=== PATIENT | female | born 1960 | race Caucasian/White ===

== ENCOUNTER 2017-02-10 23:01 | Emergency (ER) | payer SELFPAY ==
[~2017-02-10] VITALS: Wt 75.0 kg
[~2017-02-10 23:01] MED LIST: CEPH500C PO; IBUP-1542 PO; OXYC-281 PO
[2017-02-11] MEDS ORDERED: predniSONE 20 MG TAB PO ONE
[2017-02-11] MEDS ORDERED: HYDROCODONE/APAP (5/325) TAB PO ONE
[2017-02-11] MEDS ORDERED: ORPH100T PO (01:16)
[2017-02-11] MEDS ORDERED: HYDR-906 PO (01:16)
[2017-02-11] MEDS ORDERED: NAPR-260 PO (01:16)
[2017-02-11] MEDS ORDERED: MED4DP PO (01:18)
--- NOTE | 2017-02-11 01:22 | ERD ---
ER Documentation Chief Complaint Date/Time DATE: 02/11/17 TIME: 01:20 Chief Complaint severe back pain hx of sciatica HPI This is a 56-year-old female presents to the ER with lower back pain that radiates down into her left leg. This pain started last Wednesday. Pain is described as shocklike. Patient does admit to numbness and tingling of her left leg. Patient has had episodes of sciatica in the past and states this is similar. She denies any recent falls. She denies any urinary bowel incontinence patient denies any urinary frequency or dysuria. She denies any fevers or chills. She denies any IV drug use ROS 12 point review of systems was done, all negative except per HPI. Medications Home Meds Active Scripts Methylprednisolone* (Medrol* DOSE PACK) 4 Mg/Dose-Pack Tab.ds.pk, 4 MG PO . DIRECTED for 6 Days, PACKET Prov:KELBY LAMB 02/11/17 Orphenadrine Citrate (Norflex) 100 Mg Tablet.sa, 100 MG PO BID for 3 Days, TAB.SA Prov:KELBY LAMB 02/11/17 Naproxen* (Naprosyn*) 500 Mg Tablet, 500 MG PO BID Y for PAIN AND/OR INFLAMMATION, #30 TAB Prov:KELBY LAMB 02/11/17 Hydrocodone/Acetaminophen ([place] 5-325 Tablet) 1 Each Tablet, 1 TAB PO Q6H Y for PAIN, #15 TAB Prov:KELBY LAMB 02/11/17 Oxycodone Hcl-Acetaminophen* (Percocet*) 5-325 Mg Tablet, 1 TAB PO TID Y for PAIN LEVEL 6-10, #12 TAB Prov:ERIC CASTLE MD 02/27/16 Ibuprofen* (Ibuprofen*) 600 Mg Tablet, 600 MG PO TID for PAIN, #30 TAB Prov:ERIC CASTLE MD 02/27/16 Cephalexin* (Cephalexin*) 500 Mg Capsule, 500 MG PO TID, #21 CAP Prov:ERIC CASTLE MD 02/27/16 Allergies Allergies: Coded Allergies: No Known Allergy (Unverified , 02/27/16) PMhx/Soc History of Surgery: No Anesthesia Reaction: No Hx Neurological Disorder: No Hx Respiratory Disorders: No Hx Cardiac Disorders: No Hx Psychiatric Problems: No Hx Miscellaneous Medical Probl: Yes (jeremias ) Hx Alcohol Use: No Hx Substance Use: No Hx Tobacco Use: No Physical Exam Vitals Vital Signs Date Time Temp Pulse Resp B/P Pulse Ox O2 Delivery O2 Flow Rate FiO2 02/10/17 23:06 99.1 86 20 199/91 98 Physical Exam GENERAL: The patient is well developed and appropriate for usual state of health , in no apparent distress. NECK: C-spine is soft and supple. There is no cervical lymphadenopathy. CHEST: Clear to auscultation bilaterally. There are no rales, wheezes or rhonchi. HEART: Regular rate and rhythm. No murmurs, clicks, rubs or gallops. ABDOMEN: Soft, nontender and nondistended. Good bowel sounds. No rebound or guarding. No gross peritonitis. No gross organomegaly or masses. No Astudillo sign or McBurney point tenderness. No pulsatile abdominal mass. BACK: No midline or flank tenderness.. Tense paraspinal muscles. Negative leg raise test. No step- offs. EXTREMITIES: Equal pulses bilaterally. There is no peripheral clubbing, cyanosis or edema. No focal swelling or erythema. Full range of motion. Grossly neurovascularly intact. NEURO: Alert and oriented. Cranial nerves II through XII are intact. Motor strength in all 4 extremities with 5/5 strength. Sensation grossly intact. Normal speech and gait. SKIN: There is no apparent rash or petechia. The skin is warm and dry. Results 24 hrs Current Medications Medications (Trade) Dose Ordered Sig/Shanti Route PRN Reason Start Time Stop Time Status Last Admin Dose Admin Acetaminophen/ Hydrocodone Bitart ([place] (5/325)) 1 tab ONCE ONCE PO 02/11/17 00:00 02/11/17 00:07 DC 02/11/17 00:22 Prednisone (Prednisone) 60 mg ONCE ONCE PO 02/11/17 00:00 02/11/17 00:07 DC 02/11/17 00:22 Procedures/MDM Differential Diagnosis includes but is not limited to back strain, vertebral fracture, epidural abscess, cauda equina, herniated disc, AAA rupture, kidney stones, UTI, pyelonephritis. This is a 56-year-old female that presents to the ER with recurrent sciatica pain. This is likely sciatica pain. Patient is neurovascularly intact and is afebrile. Patient will be sent home with [place], Naproxen, Norflex, a steroid pack. Patient is to follow-up with her primary care doctor within 1-2 days or return to ER sooner if symptoms worsen. My medical decision making was shared with the patient understands and agrees with plan Departure Diagnosis: Primary Impression: Sciatica Condition: Stable Patient Instructions: Back Pain W/ Sciatica Additional Instructions: Llame al doctor MAANA y paulina rafat BRENDA PARA DENTRO DE 1-2 PERALTA.Dgale a la secretaria que nosotros le instruimos hacer esta brenda.Avise o llame si rollins condicin se empeora antes de la brenda. Regresa aqui si peor o no mejor. KELBY LAMB Feb 11, 2017 01:22
[2017-02-11 01:35] VITALS: BP 117/65; PULSE 69; TEMP 97.4
== END 2017-02-11 01:43 | disposition home or self-care (01) ==
LOC: FTE 23:01
DX: M54.42 Lumbago with sciatica, left side (principal)
CPT/HCPCS: 99284; J7512

== ENCOUNTER 2017-07-11 12:33 | Emergency (ER) | END 2017-07-11 16:22 | disposition home or self-care (01) | DX: N10 Acute pyelonephritis (principal); R40.2252 Coma scale, best verbal response, oriented, at arrival to emergency department; D72.829 Elevated white blood cell count, unspecified; R40.2142 Coma scale, eyes open, spontaneous, at arrival to emergency department; R40.2362 Coma scale, best motor response, obeys commands, at arrival to emergency department | CPT/HCPCS: 36415; 80053; 81001; 83605; 85025; 87040; 87086; 96374; 96375; J0696; J1885; J2270; J2405; J7030; Z7502 ==

== ENCOUNTER 2017-08-07 18:34 | Inpatient (IN) | payer MEDICAID, OTHER ==
[~2017-08-07] VITALS: Ht 157.5 cm; Wt 80.0 kg
[~2017-08-07 18:34] MED LIST changes: +CEPH-443 PO; +HYDR-906 PO; +IBUP800T25 PO; +MED4DP PO; +NAPR-260 PO; +ONDA4TAB14 PO; +ORPH100T PO
[2017-08-07] MEDS ORDERED: SODIUM CHLORIDE 0.9% 1L BAG IV* STA (19:30)
[2017-08-07] MEDS ORDERED: ACETAMINOPHEN 500 MG TAB PO STA (19:30)
[2017-08-07] MEDS ORDERED: morphine 4 MG/ML VIAL IV STA (19:40)
[2017-08-07] MEDS ORDERED: ONDANSETRON 4 MG INJ IV STA (19:40)
--- NOTE | 2017-08-07 19:54 | ERA ---
ER Documentation Chief Complaint Date/Time DATE: 08/07/17 TIME: 19:51 Chief Complaint Flank pain bilateral, pelvic pain fever x3 days HPI This is a 57-year-old female who presents to the emergency room with multiple complaints. She describes 3 days of symptoms. She describes abdominal pain that she states is pelvic but points to the suprapubic region associated with dysuria urgency and frequency. She describes right flank pain that is moderate and constant without movement. She also is noted to have a fever. She describes generalized malaise. Her abdominal pain is 5 out of 10 currently. No vaginal bleeding or discharge. ROS All systems reviewed and are negative except as per history of present illness. Medications Home Meds Active Scripts Docusate Sodium* (Colace*) 100 Mg Capsule, 100 MG PO TID Y for CONSTIPATION, # 30 CAP Prov:PERLA SALGADO MD 08/07/17 Cephalexin* (Keflex*) 500 Mg Capsule, 500 MG PO BID for 14 Days, CAP Prov:PERLA SALGADO MD 08/07/17 Ibuprofen* (Motrin*) 800 Mg Tab, 800 MG PO Q6H Y for PAIN AND OR ELEVATED TEMP, #30 TAB Prov:PERLA SALGADO MD 08/07/17 Ondansetron (Ondansetron Odt) 4 Mg Tab.rapdis, 4 MG PO Q6H Y for NAUSEA AND/OR VOMITING, #10 TAB Prov:PERLA SALGADO MD 07/11/17 Hydrocodone/Acetaminophen ([place] 5-325 Tablet) 1 Each Tablet, 1 TAB PO Q6H Y for PAIN, #7 TAB Prov:PERLA SALGADO MD 07/11/17 Ibuprofen* (Motrin*) 800 Mg Tab, 800 MG PO Q6H Y for PAIN AND OR ELEVATED TEMP, #30 TAB Prov:PERLA SALGADO MD 07/11/17 Cephalexin* (Keflex*) 500 Mg Capsule, 500 MG PO BID for 14 Days, CAP Prov:PERLA SALGADO MD 07/11/17 Methylprednisolone* (Medrol* DOSE PACK) 4 Mg/Dose-Pack Tab.ds.pk, 4 MG PO . DIRECTED for 6 Days, PACKET Prov:KELBY LAMB 02/11/17 Orphenadrine Citrate (Norflex) 100 Mg Tablet.sa, 100 MG PO BID for 3 Days, TAB.SA Prov:ZAINABKELBY PEREZ Williams 02/11/17 Naproxen* (Naprosyn*) 500 Mg Tablet, 500 MG PO BID Y for PAIN AND/OR INFLAMMATION, #30 TAB Prov:FRIDA LAMBSHIVAM Kramer 02/11/17 Hydrocodone/Acetaminophen ([place] 5-325 Tablet) 1 Each Tablet, 1 TAB PO Q6H Y for PAIN, #15 TAB Prov:ZAINAB,KELBY Kramer 02/11/17 Oxycodone Hcl-Acetaminophen* (Percocet*) 5-325 Mg Tablet, 1 TAB PO TID Y for PAIN LEVEL 6-10, #12 TAB Prov:ERIC CASTLE MD 02/27/16 Ibuprofen* (Ibuprofen*) 600 Mg Tablet, 600 MG PO TID for PAIN, #30 TAB Prov:ERIC CASTLE MD 02/27/16 Cephalexin* (Cephalexin*) 500 Mg Capsule, 500 MG PO TID, #21 CAP Prov:ERIC CASTLE MD 02/27/16 Allergies Allergies: Coded Allergies: No Known Allergy (Unverified , 02/27/16) PMhx/Soc History of Surgery: No Anesthesia Reaction: No Hx Neurological Disorder: No Hx Respiratory Disorders: No Hx Cardiac Disorders: No Hx Psychiatric Problems: No Hx Miscellaneous Medical Probl: Yes Hx Alcohol Use: No Hx Substance Use: No Hx Tobacco Use: No FmHx Family History: No diabetes Physical Exam Vitals Vital Signs Date Time Temp Pulse Resp B/P Pulse Ox O2 Delivery O2 Flow Rate FiO2 08/07/17 21:06 102.9 81 18 121/71 Room Air 08/07/17 20:14 Nasal Cannula 08/07/17 18:49 103.5 108 24 121/59 97 Physical Exam General: Well developed, well nourished, no acute distress Head: Normocephalic, atraumatic Eyes: Pupils equally reactive, EOM intact ENT: Moist mucous membranes Neck: Supple, no lymphadenopathy Respiratory: Lungs clear bilaterally, no distress Cardiovascular: RRR, no murmurs, rubs, or gallops Abdominal: Soft, mild generalized abdominal tenderness worse to the suprapubic region without rebound or guarding, no tenderness to McBurney's point Back: Mild CVA tenderness on the right : Deferred MSK: No edema, no unilateral swelling, 5/5 strength Neurologic: Alert and oriented, moving all extremities, normal speech, no focal weakness, no cerebellar signs Skin: No rash Psych: Normal mood Result Diagram: 08/07/17194408/07/171944 Results 24 hrs Laboratory Tests Test 08/07/17 19:45 08/07/17 21:36 White Blood Count 21.610^3/ul Red Blood Count 5.3310^6/ul Hemoglobin 13.3g/dl Hematocrit 42.3% Mean Corpuscular Volume 79.4fl Mean Corpuscular Hemoglobin 25.0pg Mean Corpuscular Hemoglobin Concent 31.4g/dl Red Cell Distribution Width 15.9% Platelet Count 55106^3/UL Mean Platelet Volume 9.0fl Neutrophils % 75.5% Lymphocytes % 13.3% Monocytes % 10.2% Eosinophils % 0.0% Basophils % 0.3% Nucleated Red Blood Cells % 0.0/100WBC Neutrophils # (Manual) 16.310^3/ul Lymphocytes # 2.910^3/ul Monocytes # 2.210^3/ul Eosinophils # 0.010^3/ul Basophils # 0.110^3/ul Nucleated Red Blood Cells # 0.010^3/ul Urine Color MIRA Urine Clarity CLOUDY Urine pH 5.0 Urine Specific Raymond 1.016 Urine Ketones TRACEmg/dL Urine Nitrite POSITIVEmg/dL Urine Bilirubin NEGATIVEmg/dL Urine Urobilinogen NEGATIVEmg/dL Urine Leukocyte Esterase 3+Darinel/ul Urine Microscopic RBC 54/HPF Urine Microscopic WBC > 182/HPF Urine Squamous Epithelial Cells FEW/HPF Urine Transitional Epithelial Cells FEW/HPF Urine Bacteria MANY/HPF Urine Mucus FEW/HPF Urine Hemoglobin 2+mg/dL Urine Glucose NEGATIVEmg/dL Urine Total Protein 2+mg/dl Sodium Level 136mmol/L Potassium Level 3.4mmol/L Chloride Level 100mmol/L Carbon Dioxide Level 25mmol/L Anion Gap 14 Blood Urea Nitrogen 15mg/dl Creatinine 1.13mg/dl Glucose Level 131mg/dl Lactic Acid Level 1.7mmol/L 0.9mmol/L Calcium Level 8.9mg/dl Total Bilirubin 1.4mg/dl Direct Bilirubin 0.00mg/dl Indirect Bilirubin 1.4mg/dl Aspartate Amino Transf (AST/SGOT) 16IU/L Alanine Aminotransferase (ALT/SGPT) 17IU/L Alkaline Phosphatase 91IU/L Total Protein 7.9g/dl Albumin 4.1g/dl Globulin 3.80g/dl Albumin/Globulin Ratio 1.07 Lipase 55U/L Current Medications Medications (Trade) Dose Ordered Sig/Shanti Route PRN Reason Start Time Stop Time Status Last Admin Dose Admin Sodium Chloride (NS) 2,420 ml BOLUS OVER 2 HOURS STAT IV* 08/07/17 19:30 08/07/17 19:31 DC 08/07/17 20:24 Acetaminophen (Tylenol Tab) 1,000 mg ONCE STAT PO 08/07/17 19:30 08/07/17 19:31 DC 08/07/17 20:19 Morphine Sulfate (morphine) 4 mg ONCE STAT IV 08/07/17 19:40 08/07/17 19:41 DC 08/07/17 20:19 Ondansetron HCl 4 mg 4 mg ONCE STAT IV 08/07/17 19:40 08/07/17 19:41 DC 08/07/17 20:19 Ceftriaxone Sodium (Rocephin) 50 ml @ 100 mls/hr ONCE ONCE IVPB 08/07/17 21:00 08/07/17 21:29 DC 08/07/17 21:05 Ketorolac Tromethamine (Toradol) 15 mg ONCE ONCE IV 08/07/17 21:57 08/07/17 21:58 DC 08/07/17 22:01 Ketorolac Tromethamine (Toradol) 30 mg STK-MED ONCE .ROUTE 08/07/17 21:53 08/07/17 21:54 DC Procedures/MDM EKG, MONITORS, & DIAGNOSTIC IMAGING: Chest x-ray: I reviewed and interpreted a 1 view of the chest Mediastinum: No enlargement Cardiac silhouette: No cardiomegaly Airspace: Clear lung denis bilaterally without evidence of pneumothorax Bones: No evidence of fracture CT abdomen and pelvis: IMPRESSION: 1. When compared to the previous CT of 02/27/2016, there is increasing but mild fluid distension of multiple segments of distal small bowel, fluid seen in mildly distended ascending colon. There is substantial stool seen to the hepatic flexure and transverse colon. The pattern is most reflective of ileus and can be seen with diarrhea. Multiple diverticuli are seen in the descending colon but there is no evidence of significant bowel obstruction or inflammation. The vermiform appendix is not identified. 2. Mild renal cortical scarring with minimal perinephric stranding. There is no longer pelvocaliectasis. No ureterolith is identified and the bladder is suboptimally distended but unremarkable. 3. The liver is decreased in size and is now borderline enlarged but no focal lesion. 4. There is no free intraperitoneal fluid or air. No abscess is evident. 5. Status post hysterectomy with no adnexal mass evident. 6. Minimal discoid atelectasis seen at the posterior lung bases, improved from the previous study. LAB INTERPRETATION: Significant leukocytosis and urinary tract infection but normal lactic acid MEDICAL DECISION MAKING: The patient presents with fever, abdominal pain, dysuria, right flank pain. Constellation of symptoms are concerning for pyelonephritis. The patient does have a history of stones prompting CT imaging to rule out obstructed or infected stone. Lower clinical concern for appendicitis or alternative acute intra-abdominal process. The patient does not have any vaginal bleeding or discharge therefore I do not believe this is consistent with PID or pelvic infection. ER COURSE: The patient does have leukocytosis but does have evidence of pyelonephritis with positive UTI and clinical findings consistent with pyelonephritis. However , the patient's fever has been controlled, vital signs are stable and normal lactic acid is present. For this reason I feel the patient would tolerate outpatient therapy. Her pain is well controlled and she can tolerate oral intake. I did discuss return precautions including worsening symptoms, inability to tolerate oral intake. Urine culture has been sent. Clinically the patient does not have an ileus, stool softener would be reasonable. I kept the patient and/or family informed of laboratory and diagnostic imaging results throughout the emergency room course. DISPOSITION PLAN: We discussed follow up with the patient's primary care doctor within 24 to 48 hours as needed. We also discussed return to the emergency room for worsening symptoms or worsening condition. Outpatient referral: [None required] Discharge Medications: Motrin, Keflex, Colace Departure Diagnosis: Primary Impression: Acute pyelonephritis Additional Impressions: Constipation Qualified Code: K59.00 - Constipation, unspecified constipation type Leukocytosis Qualified Code: D72.829 - Leukocytosis, unspecified type Condition: Stable PERLA SALGADO MD Aug 07, 2017 19:54
[2017-08-07 20:07] LABS: ABNORMAL IP MESSAGE 1; BASOPHIL # 0.1 10^3/ul (0.0-0.1); BASOPHILS % 0.3 % (0.0-2.0); HEMATOCRIT 42.3 % (37.0-47.0); HEMOGLOBIN 13.3 g/dl (12.0-16.0); LYMPHOCYTES # 2.9 10^3/ul (0.8-2.9); LYMPHOCYTES % 13.3 % (15.0-51.0); MEAN CORPUSCULAR HGB CONC 31.4 g/dl (32.0-37.0); MEAN CORPUSCULAR VOLUME 79.4 fl (82.0-101.0); MONOCYTE # 2.2 10^3/ul (0.3-0.9); MONOCYTES % 10.2 % (0.0-11.0); NEUTROPHILS % 75.5 % (39.0-77.0); PLATELET COUNT 395 10^3/UL (140-415); RED BLOOD COUNT 5.33 10^6/ul (4.20-5.40); RED CELL DISTRIBUTION WIDTH 15.9 % (11.5-14.5); WHITE BLOOD COUNT 21.6 10^3/ul (4.8-10.8)
[2017-08-07 20:08] LABS: POSITIVE DIFF @See below
[2017-08-07 20:19] LABS: ADD UMIC YES; UR ASCORBIC ACID NEGATIVE (NEGATIVE); UR BACTERIA MANY /HPF (NONE SEEN); UR BILIRUBIN (Dip) NEGATIVE (NEGATIVE); UR BLOOD (Dip) 2+ mg/dL (NEGATIVE); UR CLARITY CLOUDY (CLEAR); UR COLOR AMBER (YELLOW); UR GLUCOSE (Dip) NEGATIVE (NEGATIVE); UR KETONES (Dip) TRACE mg/dL (NEGATIVE); UR LEUKOCYTE ESTERASE (Dip) 3+ Leu/ul (NEGATIVE); UR MUCUS FEW /HPF (NONE SEEN); UR NITRITE (Dip) POSITIVE (NEGATIVE); UR RBC 54 /HPF (0-5); UR SPECIFIC GRAVITY (Dip) 1.016 (1.003-1.030); UR SQUAMOUS EPITHELIAL CELL FEW /HPF (FEW); UR TOTAL PROTEIN (Dip) 2+ mg/dl (NEGATIVE); UR TRANSITIONAL EPI CELL FEW /HPF (NONE SEEN); UR UROBILINOGEN (Dip) NEGATIVE (NEGATIVE); UR WBC CLUMPS FEW /HPF (NONE SEEN)
[2017-08-07 20:21] LABS: ALBUMIN 4.1 g/dl (3.3-4.9); ALBUMIN/GLOBULIN RATIO 1.07; BILIRUBIN,INDIRECT 1.4 mg/dl (0-1.1); BILIRUBIN,TOTAL 1.4 mg/dl (0.2-1.3); CALCIUM 8.9 mg/dl (8.4-10.2); CREATININE 1.13 mg/dl (0.44-1.00); POTASSIUM 3.4 mmol/L (3.5-5.1); TOTAL PROTEIN 7.9 g/dl (6.1-8.1)
[2017-08-07] MEDS ORDERED: CEFTRIAXONE 2 GM/50 ML (PMX) 50 ML IVPB ONE (21:00)
[2017-08-07] MEDS ORDERED: KETOROLAC 30 MG INJ ONE (21:53)
[2017-08-07] MEDS ORDERED: KETOROLAC 15 MG INJ IV ONE (21:57)
--- NOTE | 2017-08-07 22:01 | RADRPT ---
PROCEDURE: CT Abdomen and Pelvis without contrast CLINICAL INDICATION: Sepsis TECHNIQUE: Transaxial images were obtained through the abdomen and pelvis on a multi-slice scanner without the intravenous contrast administration. No oral contrast had previously been given. Sagit nathan and coronal re-formations were subsequently reconstructed. One or more of the following dose reduction techniques were used: - Automated exposure control. - Adjustment of the mA and/or kV according to patient size. - Use of iterative reconstruction technique. Radiation dose: CTDIvol = 15.25 mGy; DLP = 908.01 mGy-cm. COMPARISON: 02/27/2016 FINDINGS: Lung bases: Discoid atelectatic changes seen within the posterior lung bases. This has improved sinc e the previous study. The heart remains mildly enlarged. Liver: The liver is decreased in size and is now borderline enlarged. No focal lesion is evident. Gallbladder: The gallbladder is mildly distended but no gallstones or gallbladder wall thickening is evident. Bile ducts: The intra and extrahepatic bile ducts are normal in caliber. Pancreas: Appears normal with no mass or inflammation evident. Spleen: Normal in size with no focal lesion. Adrenals: Normal with no mass identified. Kidneys, ureters and bladder: There is mild renal cortical scarring and mild perinephric stranding b ut no intra renal mass, pathological calcification, or hydronephrosis is evident. The ureters are no t dilated and no ureterolith is evident. The bladder. Is unremarkable but suboptimally distended. Reproductive organs: The uterus is absent and no adnexal mass is identified. Surgical clips are agai n seen in the pelvic sidewalls. Stomach and bowel: The stomach appears unremarkable. There are mild to moderately fluid distended se gments of small bowel distally. There is now fluid within the ascending colon while considerable sto ol is seen within the hepatic flexure and transverse with multiple diverticuli are seen within the d escending colon without evidence of diverticulitis. Appendix: The vermiform appendix is not identified. Peritoneum: No free intraperitoneal fluid or air is identified. Aorta: Normal in caliber with no aneurysmal dilatation. IVC: Unremarkable. Lymph nodes: No pathologically enlarged nodes are identified. Osseous structures: Degenerative disc changes are noted at L2-L3 and L 5 - S1 with mild degenerative this spurring seen on the endplates. IMPRESSION: 1. When compared to the previous CT of 02/27/2016, there is increasing but mild fluid distension of multiple segments of distal small bowel, fluid seen in mildly distended ascending colon. There is s ubstantial stool seen to the hepatic flexure and transverse colon. The pattern is most reflective of ileus and can be seen with diarrhea. Multiple diverticuli are seen in the descending colon but ther e is no evidence of significant bowel obstruction or inflammation. The vermiform appendix is not venkatesh ntified. 2. Mild renal cortical scarring with minimal perinephric stranding. There is no longer pelvocaliect asis. No ureterolith is identified and the bladder is suboptimally distended but unremarkable. 3. The liver is decreased in size and is now borderline enlarged but no focal lesion. 4. There is no free intraperitoneal fluid or air. No abscess is evident. 5. Status post hysterectomy with no adnexal mass evident. 6. Minimal discoid atelectasis seen at the posterior lung bases, improved from the previous study. Physician Delilah Date Time Electronically viewed and signed by Physician Delilah on 08/07/2017 22:00 /
--- NOTE | 2017-08-07 22:03 | RADRPT ---
PROCEDURE: XR Chest AP portable CLINICAL INDICATION: Sepsis TECHNIQUE: An AP portable radiograph of the chest was submitted. COMPARISON: None. FINDINGS: Support Hardware: None Cardiovascular: The heart is upper normal in size while the aorta appears slightly tortuous. The javy tral pulmonary vasculature is prominent. Lung Jarquin: A poor inspiratory effort compresses lung parenchyma with discoid atelectatic change no tulio at the lung bases. No alveolar infiltrate is identified. Pleural Spaces: No pneumothorax or pleural effusion is identified. Osseous Structures: The osseous structures appear intact. Soft Tissues: The soft tissues appear generous. IMPRESSION: 1. The heart is upper normal in size and the aorta appears tortuous. The central pulmonary vasculat ure appears prominent raising the possibility of pulmonary arterial hypertension. 2. Poor inspiratory effort with discoid atelectatic change seen at the lung bases. Physician Delilah Date Time Electronically viewed and signed by Physician Delilah on 08/07/2017 22:03 /
[2017-08-07] MEDS ORDERED: CEPH-443 PO (22:26)
[2017-08-07] MEDS ORDERED: DOCU-144 PO (22:26)
[2017-08-07] MEDS ORDERED: IBUP800T25 PO (22:26)
[2017-08-07] MEDS ORDERED: SOD CHLORIDE 0.9% 1,000 ML IV STA (22:49)
[2017-08-07] MEDS ORDERED: ACETAMINOPHEN 325 MG TAB PO PRN (23:00)
[2017-08-07] MEDS ORDERED: ONDANSETRON 4 MG INJ IV PRN (23:00)
[2017-08-07 23:29] VITALS: TEMP 98.5
[2017-08-08] VITALS (7 sets, daily range): BP systolic 91–163; BP diastolic 53–95; PULSE 72–89; RESP 18–19; Ht 157.5 cm; Wt 80.0 kg
[2017-08-08] MEDS ORDERED: BISACODYL (EC) 5 MG TAB PO PRN (01:00)
[2017-08-08] MEDS ORDERED: NACL 0.9% 3 ML SYG IV SCH (01:00)
[2017-08-08] MEDS ORDERED: ONDANSETRON 4 MG INJ IV PRN (01:00)
[2017-08-08] MEDS ORDERED: DOCUSATE SODIUM 100 MG CAP PO PRN (01:00)
[2017-08-08] MEDS: FAMOTIDINE 20 MG TAB PO SCH ×3 (01:26→20:40)
[2017-08-08] MEDS ORDERED: SOD CHLORIDE 0.9% 1,000 ML IV ONE (01:30)
[2017-08-08] MEDS ORDERED: PIPER-TAZO 3.375 GM IV (PMX) 100 ML IVPB SCH ×2 (01:30→03:30)
[2017-08-08] MEDS: SOD CHLORIDE 0.9% 1,000 ML IV SCH ×4 (03:44→18:32)
[2017-08-08 05:25] LABS: ABNORMAL IP MESSAGE 1; BASOPHIL # 0.1 10^3/ul (0.0-0.1); BASOPHILS % 0.4 % (0.0-2.0); EOSINOPHILS % 0.1 % (0.0-7.0); HEMOGLOBIN 10.4 g/dl (12.0-16.0); LYMPHOCYTES # 1.8 10^3/ul (0.8-2.9); LYMPHOCYTES % 10.9 % (15.0-51.0); MEAN CORPUSCULAR HEMOGLOBIN 24.8 pg (29.0-33.0); MEAN CORPUSCULAR HGB CONC 30.6 g/dl (32.0-37.0); MEAN CORPUSCULAR VOLUME 81.1 fl (82.0-101.0); MEAN PLATELET VOLUME 9.4 fl (7.4-10.4); MONOCYTE # 1.7 10^3/ul (0.3-0.9); MONOCYTES % 10.4 % (0.0-11.0); NEUTROPHILS % 77.4 % (39.0-77.0); PLATELET COUNT 314 10^3/UL (140-415); RED BLOOD COUNT 4.19 10^6/ul (4.20-5.40); RED CELL DISTRIBUTION WIDTH 16.3 % (11.5-14.5); WHITE BLOOD COUNT 16.4 10^3/ul (4.8-10.8)
[2017-08-08 05:34] LABS: POSITIVE DIFF @See below
[2017-08-08 06:05] LABS: ALBUMIN 2.8 g/dl (3.3-4.9); ALBUMIN/GLOBULIN RATIO 0.96; BILIRUBIN,INDIRECT 0.7 mg/dl (0-1.1); BILIRUBIN,TOTAL 0.7 mg/dl (0.2-1.3); CHOL/HDL RATIO 3.5 RATIO; CREATININE 1.05 mg/dl (0.44-1.00); MAGNESIUM 1.8 mg/dl (1.7-2.5); POTASSIUM 3.8 mmol/L (3.5-5.1); TOTAL PROTEIN 5.7 g/dl (6.1-8.1)
[2017-08-08 06:35] LABS: THYROID STIMULATING HORMONE 0.409 MIU/L (0.465-4.680)
--- NOTE | 2017-08-08 06:53 | HP ---
Date/Time of Note Date/Time of Note DATE: 08/08/17 TIME: 06:34 Assessment/Plan VTE Prophylaxis VTE Prophylaxis Intervention: SCD's Lines/Catheters IV C[facility]ter Type (from [facility] Peripheral IV Urinary Cath still in place: No Assessment/Plan Chief Complaint/Hosp Course This is a 57-year-old female being admitted to the [facility] floor for: #1 Sepsis: Likely secondary to underlying urinary tract infection/ polynephritis. She was started on ceftriaxone in the ED. Upon review of previous microbiology reports patient had a previous organism that was resistant to cephalosporins and fluoroquinolones. At the current time will start the patient on Zosyn IV. Will await urine culture and sensitivity results. Will trend CBC to assess white blood cell count. Will continue IV fluid hydration with normal saline bolus and normal saline maintenance dose. Continue to monitor blood pressures. Follow urine and blood cultures #2 pyelonephritis: CAT scan showed perinephric stranding however no signs of any hydronephrosis. Patient does though have bilateral flank pain. Will treat with Zosyn IV, and await urine cultures. #3 suspected pulmonary hypertension: Incidental finding on the chest x-ray of prominence of the central pulmonary vasculature. Will order echocardiogram. Will consult pulmonology if indicated 4 suspected ileus: CAT scan shows signs of ileus and retained stool. Will put patient on bowel regimen of Colace and MiraLAX daily #4 history of nephrolithiasis: No signs of any kidney stones on CAT scan #5 hyperlipidemia: check lipids, consider statin #6 DVT and GI prophylaxis: SCDs, acid pierre Further treatment strategy will be implemented as per the clinical course Problems: HPI/ROS Admit Date/Time Admit Date/Time Aug 07, 2017 at 22:49 Hx of Present Illness Chief complaint: Multiple complaints This is a 57-year-old female who presents to the emergency room with multiple complaints. She describes 3 days of symptoms. She describes abdominal pain that she states is pelvic but points to the suprapubic region associated with dysuria urgency and frequency. She describes right flank pain that is moderate and constant without movement. She also is noted to have a fever. She describes generalized malaise. Her abdominal pain is 5 out of 10 currently. No vaginal bleeding or discharge. Patient was started on ceftriaxone in the ED. Allergies: NKDA Medications: See MELLY BEAVERS Const: As per HPI Eyes : No pain discharge or redness or change in visual acuity ENT: No pain, sore throat, congestion, congestion, dysphagia or discharge Respiratory: No shortness of breath, cough, sputum, wheezing, or pleuritic pain Cardiovascular: No chest pain, palpitation, PND, or edema GI : no change in appetite, abdominal pain, nausea, vomiting, diarrhea, constipation, or change in the color his stool Genitourinary: As per HPI Musculoskeletal: No joint pain, back pain, neck pain, restricted range of motion in neck or joints Skin: No rash, bruising or hives Neuro: No headache, dizziness, syncope, seizure, focal weakness Endocrine: No polyuria, polydipsia, temperature intolerance Psych: No hallucination, depression, anxiety or suicidal ideation PMH/Family/Social Past Medical History Hyperlipidemia, history of nephrolithiasis Past Surgical History Hysterectomy Family History Significant Family History: no pertinent family hx Social History Alcohol Use: none Smoking Status: Never smoker Drug Use: none Exam/Review of Systems Vital Signs Vitals Vital Signs Date Time Temp Pulse Resp B/P Pulse Ox O2 Delivery O2 Flow Rate FiO2 08/08/17 05:43 98.0 72 107/58 08/08/17 03:09 19 99 08/07/17 23:29 Room Air Intake and Output 08/07/17 08/07/17 08/08/17 15:00 23:00 07:00 Intake Total 1550 ml Balance 1550 ml Exam Additional Comments PROCEDURE: XR Chest AP portable CLINICAL INDICATION: Sepsis TECHNIQUE: An AP portable radiograph of the chest was submitted. COMPARISON: None. FINDINGS: Support Hardware: None Cardiovascular: The heart is upper normal in size while the aorta appears slightly tortuous. The central pulmonary vasculature is prominent. Lung Jarquin: A poor inspiratory effort compresses lung parenchyma with discoid atelectatic change noted at the lung bases. No alveolar infiltrate is identified. Pleural Spaces: No pneumothorax or pleural effusion is identified. Osseous Structures: The osseous structures appear intact. Soft Tissues: The soft tissues appear generous. IMPRESSION: 1. The heart is upper normal in size and the aorta appears tortuous. The central pulmonary vasculature appears prominent raising the possibility of pulmonary arterial hypertension. 2. Poor inspiratory effort with discoid atelectatic change seen at the lung bases. Physician Delilah Date Time Electronically viewed and signed by Physician Delilah on 08/07/2017 22:03 RH/ CC: PERLA SALGADO MD PROCEDURE: CT Abdomen and Pelvis without contrast CLINICAL INDICATION: Sepsis TECHNIQUE: Transaxial images were obtained through the abdomen and pelvis on a multi-slice scanner without the intravenous contrast administration. No oral contrast had previously been given. Sagittal and coronal re-formations were subsequently reconstructed. One or more of the following dose reduction techniques were used: - Automated exposure control. - Adjustment of the mA and/or kV according to patient size. - Use of iterative reconstruction technique. Radiation dose: CTDIvol = 15.25 mGy; DLP = 908.01 mGy-cm. COMPARISON: 02/27/2016 FINDINGS: Lung bases: Discoid atelectatic changes seen within the posterior lung bases. This has improved since the previous study. The heart remains mildly enlarged. Liver: The liver is decreased in size and is now borderline enlarged. No focal lesion is evident. Gallbladder: The gallbladder is mildly distended but no gallstones or gallbladder wall thickening is evident. Bile ducts: The intra and extrahepatic bile ducts are normal in caliber. Pancreas: Appears normal with no mass or inflammation evident. Spleen: Normal in size with no focal lesion. Adrenals: Normal with no mass identified. Kidneys, ureters and bladder: There is mild renal cortical scarring and mild perinephric stranding but no intra renal mass, pathological calcification, or hydronephrosis is evident. The ureters are not dilated and no ureterolith is evident. The bladder. Is unremarkable but suboptimally distended. Reproductive organs: The uterus is absent and no adnexal mass is identified. Surgical clips are again seen in the pelvic sidewalls. Stomach and bowel: The stomach appears unremarkable. There are mild to moderately fluid distended segments of small bowel distally. There is now fluid within the ascending colon while considerable stool is seen within the hepatic flexure and transverse with multiple diverticuli are seen within the descending colon without evidence of diverticulitis. Appendix: The vermiform appendix is not identified. Peritoneum: No free intraperitoneal fluid or air is identified. Aorta: Normal in caliber with no aneurysmal dilatation. IVC: Unremarkable. Lymph nodes: No pathologically enlarged nodes are identified. Osseous structures: Degenerative disc changes are noted at L2-L3 and L 5 - S1 with mild degenerative this spurring seen on the endplates. IMPRESSION: 1. When compared to the previous CT of 02/27/2016, there is increasing but mild fluid distension of multiple segments of distal small bowel, fluid seen in mildly distended ascending colon. There is substantial stool seen to the hepatic flexure and transverse colon. The pattern is most reflective of ileus and can be seen with diarrhea. Multiple diverticuli are seen in the descending colon but there is no evidence of significant bowel obstruction or inflammation. The vermiform appendix is not identified. 2. Mild renal cortical scarring with minimal perinephric stranding. There is no longer pelvocaliectasis. No ureterolith is identified and the bladder is suboptimally distended but unremarkable. 3. The liver is decreased in size and is now borderline enlarged but no focal lesion. 4. There is no free intraperitoneal fluid or air. No abscess is evident. 5. Status post hysterectomy with no adnexal mass evident. 6. Minimal discoid atelectasis seen at the posterior lung bases, improved from the previous study. Physician Delilah Date Time Electronically viewed and signed by Physician Delilah on 08/07/2017 22:00 RH/ CC: PERLA SALGADO MD Labs Result Diagram: 08/08/17 0457 08/08/17 0457 Medications Medications Current Medications Sodium Chloride (NS) 1,000 ml @ 100 mls/hr Q10H IV Last administered on t 03:44; Admin Dose 100 MLS/HR; Start 08/08/17 at 00:38 Ondansetron HCl (Zofran Inj) 4 mg Q6H PRN IV NAUSEA AND/OR VOMITING; Start 09/14 at 01:00 Acetaminophen (Tylenol Tab) 650 mg Q6H PRN PO PAIN LEVEL 1-3 OR FEVER; Start at 01:00 Docusate Sodium (Colace) 100 mg Q12H PRN PO CONSTIPATION; Start 08/08/17 at 01: 00 Bisacodyl (Dulcolax) 5 mg DAILY PRN PO CONSTIPATION; Start 08/08/17 at 01:00 Famotidine 20 mg 20 mg Q12 PO Last administered on 08/08/17 01:26; Admin Dose 20 MG; Start 08/08/17 at 01:00 Piperacillin Sod/ Tazobactam Sod (Zosyn 3.375gm/ 100 ml (Pmx)) 100 ml @ 200 mls /hr Q8 IVPB Last administered on 08/08/17 03:44; Admin Dose 200 MLS/HR; Start 08/08/17 at 03:30 NATHAN MELÉNDEZ Aug 08, 2017 06:44
[2017-08-08] MEDS: DOCUSATE SODIUM 100 MG CAP PO SCH (08:43)
[2017-08-08] MEDS: POLYETHYLENE GLYCOL 17 GM PACKET PO SCH (08:43)
[2017-08-08] MEDS: ACETAMINOPHEN 325 MG TAB PO PRN ×2 (08:46→15:58)
[2017-08-08] MEDS ORDERED: SOD CHLORIDE 0.9% 500 ML IV ONE (11:00)
--- NOTE | 2017-08-08 11:06 | PN ---
Date/Time of Note Date/Time of Note DATE: 08/08/17 TIME: 10:53 Assessment/Plan VTE Prophylaxis VTE Prophylaxis Intervention: SCD's Lines/Catheters IV C[facility] Type (from [facility] Peripheral IV Urinary Cath still in place: No Assessment/Plan Chief Complaint/Hosp Course 1 Severe Pyelonephritis.Patient with ongoing fever/chills/flank pain/ leukocytosis. -Urine CS growing gram negative. Will change abx to meropenem due to high risk ESBL -Insert rivers and start Pyridium for dysuria. -IVFs, Morphine PRN pain 2. Severe sepsis secondary to #1 -500ML fluid bolus now followed by aggressive hydration as she is at risk for septic shock 2/2 severe pyelonephritis-Consider ID consult if indicated. -F/u final urine/blood CS 3. Suspected ileus: CAT scan shows signs of ileus and retained stool. -Patient with no BM -Keep NPO, Obtain small bowel follow-through and consider surgery eval if indicated. -Continue bowel regimen of Colace and MiraLAX daily 4. Suspected pulmonary hypertension: Incidental finding on the chest x-ray of prominence of the central pulmonary vasculature. -F/u echo. 5. Prediabetes.A1C 6.3 -With obesity/metabolic syndrome, patient will be benefited with Metformin therapy up on discharge -Life style modification with diet/exercise advised. PLAN:F/u with Xray small bowel and consider surgery eval if indicated. F/u cultures. Patient was seen in collaboration with . Problems: Subjective 24 Hr Interval Summary Free Text/Dictation Having fever/chills/flank pain and dysuria. Patient with no bowel movements. On diet. Exam/Review of Systems Vital Signs Vitals Vital Signs Date Time Temp Pulse Resp B/P Pulse Ox O2 Delivery O2 Flow Rate FiO2 08/08/17 10:24 100.1 08/08/17 07:50 79 18 163/95 93 08/07/17 23:29 Room Air Intake and Output 08/07/17 08/07/17 08/08/17 15:00 23:00 07:00 Intake Total 1550 ml Balance 1550 ml Exam General: Well developed, female, having fever/chills HEENT: Normocephalic, Atraumatic, No laceration or hematoma; Eyes: PEERL, Conjunctiva clear, Anicteric sclera Neck: Supple without any lymphadenopathy, nontender, no JVD, no carotid bruits, trachea midline, no thyromegaly Cardiac: S1, S2 auscultated, regular rhythm and rate, no mumurs or gallop Pulmonary: Normal respiratory effort. Chest clear to auscultation bilaterally, no adventitious breath sounds GI: With tenderness to right flank area. Soft, non- distended, no masses, no rebound tenderness or guarding. Bowel sounds HYPOactive on all four quadrants Genitourinary: With dysuria. No hematuria. Extremities: No cyanosis, clubbing, or edema. Pulses [2+] bilaterally. Full ROM on all four extremities. No focal weakness appreciated. Neurologic: Alert to person, place, time, and situation. Affect appropriate, intact sensation. Skin: Clean,dry, and intact. No ecchymosis, no rashes, or lesions Results Result Diagram: 08/08/17 0457 08/08/17 0457 Results 24 hrs Laboratory Tests Test 08/07/17 19:45 08/07/17 21:36 08/07/17 23:23 08/08/17 04:57 White Blood Count 21.6 H 16.4 #H Red Blood Count 5.33 4.19 #L Hemoglobin 13.3 10.4 #L Hematocrit 42.3 34.0 L Mean Corpuscular Volume 79.4 L 81.1 L Mean Corpuscular Hemoglobin 25.0 L 24.8 L Mean Corpuscular Hemoglobin Concent 31.4 L 30.6 L Red Cell Distribution Width 15.9 H 16.3 H Platelet Count 395 314 # Mean Platelet Volume 9.0 9.4 Neutrophils % 75.5 77.4 H Lymphocytes % 13.3 L 10.9 L Monocytes % 10.2 10.4 Eosinophils % 0.0 0.1 Basophils % 0.3 0.4 Nucleated Red Blood Cells % 0.0 0.0 Neutrophils # (Manual) 16.3 H 12.7 H Lymphocytes # 2.9 1.8 Monocytes # 2.2 H 1.7 H Eosinophils # 0.0 0.0 Basophils # 0.1 0.1 Nucleated Red Blood Cells # 0.0 0.0 Urine Color MIRA Urine Clarity CLOUDY A Urine pH 5.0 Urine Specific [place] 1.016 Urine Ketones TRACE A Urine Nitrite POSITIVE A Urine Bilirubin NEGATIVE Urine Urobilinogen NEGATIVE Urine Leukocyte Esterase 3+ H Urine Microscopic RBC 54 H Urine Microscopic WBC > 182 H Urine Squamous Epithelial Cells FEW Urine Transitional Epithelial Cells FEW A Urine Bacteria MANY A Urine Mucus FEW A Urine Hemoglobin 2+ H Urine Glucose NEGATIVE Urine Total Protein 2+ H Sodium Level 136 137 Potassium Level 3.4 L 3.8 Chloride Level 100 109 Carbon Dioxide Level 25 25 Anion Gap 14 7 L Blood Urea Nitrogen 15 15 Creatinine 1.13 H 1.05 H Glucose Level 131 142 Lactic Acid Level 1.7 0.9 1.0 Calcium Level 8.9 7.0 L Total Bilirubin 1.4 H 0.7 Direct Bilirubin 0.00 0.00 Indirect Bilirubin 1.4 H 0.7 Aspartate Amino Transf (AST/SGOT) 16 15 Alanine Aminotransferase (ALT/SGPT) 17 23 Alkaline Phosphatase 91 57 Total Protein 7.9 5.7 #L Albumin 4.1 2.8 #L Globulin 3.80 H 2.90 Albumin/Globulin Ratio 1.07 0.96 Lipase 55 Hemoglobin A1c 6.3 H Magnesium Level 1.8 Triglycerides Level 71 Cholesterol Level 135 LDL Cholesterol, Calculated 83 HDL Cholesterol 38 Cholesterol/HDL Ratio 3.5 Thyroid Stimulating Hormone (TSH) 0.409 L Medications Medications Current Medications Sodium Chloride (NS) 1,000 ml @ 125 mls/hr Q8H IV Last administered on 10:43; Admin Dose 125 MLS/HR; Start 08/08/17 at 00:38 Ondansetron HCl (Zofran Inj) 4 mg Q6H PRN IV NAUSEA AND/OR VOMITING; Start 09/14 at 01:00 Acetaminophen (Tylenol Tab) 650 mg Q6H PRN PO PAIN LEVEL 1-3 OR FEVER Last administered on 08/08/17 08:46; Admin Dose 650 MG; Start 08/08/17 at 01:00 Docusate Sodium (Colace) 100 mg Q12H PRN PO CONSTIPATION; Start 08/08/17 at 01: 00 Bisacodyl (Dulcolax) 5 mg DAILY PRN PO CONSTIPATION; Start 08/08/17 at 01:00 Famotidine (Pepcid) 20 mg Q12 PO Last administered on 08/08/17 08:43; Admin Dose 20 MG; Start 08/08/17 at 01:00 Docusate Sodium (Colace) 100 mg DAILY PO Last administered on 08/08/17 08:43; Admin Dose 100 MG; Start 08/08/17 at 09:00 Polyethylene Glycol 17 gm 17 gm DAILY PO Last administered on 08/08/17 08:43; Admin Dose 17 GM; Start 08/08/17 at 09:00 Sodium Chloride 500 ml @ 500 mls/hr Q1H ONCE IV ; Start 08/08/17 at 11:00; Stop 08/08/17 at 11:59 Meropenem/Sodium Chloride (Merrem 1 Gm/50 ml (Pmx)) 50 ml @ 100 mls/hr Q12 IVPB ; Start 08/08/17 at 11:00; Status EDOUARD LAW NP Aug 08, 2017 11:04
[2017-08-08] MEDS ORDERED: morphine 2 MG INJ IV PRN (11:30)
[2017-08-08] MEDS ORDERED: MEROPENEM 1 GM/50ML(PMX) 50 ML IVPB SCH (11:30)
[2017-08-08] MEDS: MEROPENEM 1 GM/50ML(PMX) 50 ML IVPB SCH ×2 (11:38→22:34)
[2017-08-08] MEDS: PHENAZOPYRIDINE 100 MG TAB PO SCH ×2 (12:21→20:40)
[2017-08-08] MEDS ORDERED: DIATR MEGLU/DIATRIZOATE SODIUM 120 ML BTL ONE (15:56)
--- NOTE | 2017-08-08 18:24 | RADRPT ---
PROCEDURE: XR small-bowel follow-through. CLINICAL INDICATION: Abdominal pain. TECHNIQUE: The patient was given 300 cc gastrographin contrast by mouth. Multiple overhead radiog raphs of the abdomen were then obtained COMPARISON: CT dated 08/07/2017 FINDINGS: The verifier operator view of the abdomen is unremarkable. The bowel gas pattern is normal. There is no evidence of obstruction. Contrast flows normally through the small bowel loops and into the colon. Contrast reaches the cecum in 60 minutes. No intraluminal filling defects or mucosal abnormalities are identified. 0.0 minutes of fluoroscopic time was utilized during the examination. 0 fluoroscopic images were obtained. IMPRESSION: 1. Normal small-bowel follow-through. RPTAT: QQ .Seth Rao MD, Date Time Electronically viewed and signed by .Seth Rao MD, on 08/08/2017 18:24 .M/
[2017-08-09] MEDS: ACETAMINOPHEN 325 MG TAB PO PRN ×2 (01:42→17:56)
[2017-08-09] MEDS ORDERED: ZOLPIDEM 5 MG TAB PO PRN (02:00)
[2017-08-09 02:17] VITALS: BP 119/58; RESP 19
[2017-08-09] MEDS: SOD CHLORIDE 0.9% 1,000 ML IV SCH ×4 (02:55→21:33)
[2017-08-09] MEDS: MEROPENEM 1 GM/50ML(PMX) 50 ML IVPB SCH ×3 (05:37→21:33)
[2017-08-09 06:09] LABS: BASOPHILS % 0.3 % (0.0-2.0); EOSINOPHILS # 0.1 10^3/ul (0.0-0.5); EOSINOPHILS % 0.5 % (0.0-7.0); HEMATOCRIT 32.6 % (37.0-47.0); HEMOGLOBIN 9.8 g/dl (12.0-16.0); LYMPHOCYTES # 2.4 10^3/ul (0.8-2.9); LYMPHOCYTES % 17.5 % (15.0-51.0); MEAN CORPUSCULAR HEMOGLOBIN 24.5 pg (29.0-33.0); MEAN CORPUSCULAR HGB CONC 30.1 g/dl (32.0-37.0); MEAN CORPUSCULAR VOLUME 81.5 fl (82.0-101.0); MEAN PLATELET VOLUME 9.8 fl (7.4-10.4); MONOCYTE # 1.3 10^3/ul (0.3-0.9); MONOCYTES % 9.7 % (0.0-11.0); NEUTROPHILS % 71.6 % (39.0-77.0); PLATELET COUNT 298 10^3/UL (140-415); RED CELL DISTRIBUTION WIDTH 16.3 % (11.5-14.5); WHITE BLOOD COUNT 13.4 10^3/ul (4.8-10.8)
[2017-08-09 06:50] LABS: CALCIUM 7.8 mg/dl (8.4-10.2); CREATININE 0.75 mg/dl (0.44-1.00); POTASSIUM 3.4 mmol/L (3.5-5.1)
[2017-08-09 08:00] VITALS: BP 124/58; RESP 19
[2017-08-09] MEDS: POLYETHYLENE GLYCOL 17 GM PACKET PO SCH (09:25)
[2017-08-09] MEDS: PHENAZOPYRIDINE 100 MG TAB PO SCH (09:25)
[2017-08-09] MEDS: FAMOTIDINE 20 MG TAB PO SCH ×2 (09:25→20:40)
[2017-08-09] MEDS: DOCUSATE SODIUM 100 MG CAP PO SCH (09:26)
[2017-08-09] MEDS ORDERED: POTASSIUM CHLORIDE (SR) 20 MEQ TAB PO STA (10:34)
--- NOTE | 2017-08-09 10:34 | PN ---
Date/Time of Note Date/Time of Note DATE: 08/09/17 TIME: 10:28 Assessment/Plan VTE Prophylaxis VTE Prophylaxis Intervention: ambulation, SCD's Lines/Catheters IV Catheter Type (from Nrsg): Peripheral IV Urinary Cath still in place: Yes Reason Cath still needed: other (indicate) Assessment/Plan Chief Complaint/Hosp Course 1 Severe Pyelonephritis. Clinically improving. -Urine CS growing gram negative. Continue meropenem (Day 2) due to high risk ESBL -DC Pyridium as patient now with no dysuria. -Continue IVFs, Morphine PRN pain 2. Severe sepsis secondary to #1. Resolving. -Treatment as above. -F/u final urine/blood CS. Will consider ID if needed. 3. Suspected ileus per CT: Small bowel follow-thorough is negative. Patient with regular BM. -No further intervention needed. -Continue diet, bowel regimen of Colace and MiraLAX daily 4. Suspected pulmonary hypertension: Incidental finding on the chest x-ray of prominence of the central pulmonary vasculature. Ptaient asymptomatic. -F/u echo. 5. Prediabetes.A1C 6.3. With stable glucose. -With obesity/metabolic syndrome, patient will be benefited with Metformin therapy up on discharge -Life style modification with diet/exercise advised. 6. Microcytic anemia-Likely dilutional vs iron deficiency -obtain iron panel and treat accordingly. PLAN:F/u final CS. If resistant to PO abx and BC positive, will consult ID. Patient was seen in collaboration with DR. [place]. Problems: Subjective 24 Hr Interval Summary Free Text/Dictation Remains afebrile. Tolerates diet. Had bowel movements. Having mild pain on left flank area. No more dysuria. Exam/Review of Systems Vital Signs Vitals Vital Signs Date Time Temp Pulse Resp B/P Pulse Ox O2 Delivery O2 Flow Rate FiO2 08/09/17 08:00 98.8 71 19 124/58 100 08/07/17 23:29 Room Air Intake and Output 08/08/17 08/08/17 08/09/17 15:00 23:00 07:00 Intake Total 550 ml 220 ml 1750 ml Output Total 1000 ml 1200 ml Balance 550 ml -780 ml 550 ml Exam General: Well developed, female, having fever/chills HEENT: Normocephalic, Atraumatic, No laceration or hematoma; Eyes: PEERL, Conjunctiva clear, Anicteric sclera Neck: Supple without any lymphadenopathy, nontender, no JVD, no carotid bruits, trachea midline, no thyromegaly Cardiac: S1, S2 auscultated, regular rhythm and rate, no mumurs or gallop Pulmonary: Normal respiratory effort. Chest clear to auscultation bilaterally, no adventitious breath sounds GI: With mild tenderness to right flank area. Soft, non- distended, no masses, no rebound tenderness or guarding. Bowel sounds HYPOactive on all four quadrants Genitourinary: Deferred. Extremities: No cyanosis, clubbing, or edema. Pulses [2+] bilaterally. Full ROM on all four extremities. No focal weakness appreciated. Neurologic: Alert to person, place, time, and situation. Affect appropriate, intact sensation. Skin: Clean,dry, and intact. No ecchymosis, no rashes, or lesions Results Result Diagram: 08/09/17 0530 08/09/17 0530 Results 24 hrs Laboratory Tests Test 08/09/17 05:30 White Blood Count 13.4 H Red Blood Count 4.00 L Hemoglobin 9.8 L Hematocrit 32.6 L Mean Corpuscular Volume 81.5 L Mean Corpuscular Hemoglobin 24.5 L Mean Corpuscular Hemoglobin Concent 30.1 L Red Cell Distribution Width 16.3 H Platelet Count 298 Mean Platelet Volume 9.8 Neutrophils % 71.6 Lymphocytes % 17.5 Monocytes % 9.7 Eosinophils % 0.5 Basophils % 0.3 Nucleated Red Blood Cells % 0.0 Neutrophils # (Manual) 9.6 H Lymphocytes # 2.4 Monocytes # 1.3 H Eosinophils # 0.1 Basophils # 0.0 Nucleated Red Blood Cells # 0.0 Sodium Level 141 Potassium Level 3.4 L Chloride Level 113 H Carbon Dioxide Level 25 Anion Gap 6 L Blood Urea Nitrogen 5 #L Creatinine 0.75 Glucose Level 106 Calcium Level 7.8 L Free Thyroxine 1.04 Total Triiodothyronine 0.49 L Medications Medications Current Medications Sodium Chloride (NS) 1,000 ml @ 125 mls/hr Q8H IV Last administered on t 02:55; Admin Dose 125 MLS/HR; Start 08/08/17 at 00:38 Ondansetron HCl (Zofran Inj) 4 mg Q6H PRN IV NAUSEA AND/OR VOMITING; Start 09/14 at 01:00 Acetaminophen (Tylenol Tab) 650 mg Q6H PRN PO PAIN LEVEL 1-3 OR FEVER Last administered on 08/09/17 01:42; Admin Dose 650 MG; Start 08/08/17 at 01:00 Docusate Sodium (Colace) 100 mg Q12H PRN PO CONSTIPATION; Start 08/08/17 at 01: 00 Bisacodyl (Dulcolax) 5 mg DAILY PRN PO CONSTIPATION; Start 08/08/17 at 01:00 Famotidine (Pepcid) 20 mg Q12 PO Last administered on 08/09/17 09:25; Admin Dose 20 MG; Start 08/08/17 at 01:00 Docusate Sodium (Colace) 100 mg DAILY PO Last administered on 08/09/17 09:26; Admin Dose 100 MG; Start 08/08/17 at 09:00 Polyethylene Glycol 17 gm 17 gm DAILY PO Last administered on 08/09/17 09:25; Admin Dose 17 GM; Start 08/08/17 at 09:00 Meropenem/Sodium Chloride (Merrem 1 Gm/50 ml (Pmx)) 50 ml @ 100 mls/hr Q8 IVPB Last administered on 08/09/17 05:37; Admin Dose 100 MLS/HR; Start 08/08/17 at 11:30 Phenazopyridine HCl (Pyridium) 100 mg TID PO Last administered on 08/09/17 09: 25; Admin Dose 100 MG; Start 08/08/17 at 13:00 Morphine Sulfate (morphine) 2 mg Q3H PRN IV pain; Start 08/08/17 at 11:30 Zolpidem Tartrate (Ambien) 5 mg HS PRN PO INSOMNIA Last administered on 02:13; Admin Dose 5 MG; Start 08/09/17 at 02:00 EDOUARD HICKS NP Aug 09, 2017 10:34
[2017-08-09 11:19] LABS: IRON < 10 ug/dl (35-150)
[2017-08-09 11:27] LABS: TOTAL IRON BINDING CAPACITY 265 ug/dl (241-421)
[2017-08-09 14:00] VITALS: BP 121/68; RESP 19
[2017-08-09 20:36] VITALS: BP 113/55; RESP 18
[2017-08-10] MEDS: ACETAMINOPHEN 325 MG TAB PO PRN (03:05)
[2017-08-10 03:18] VITALS: BP 139/69; RESP 18
[2017-08-10] MEDS: MEROPENEM 1 GM/50ML(PMX) 50 ML IVPB SCH ×3 (05:18→21:37)
[2017-08-10 05:59] LABS: BASOPHIL # 0.1 10^3/ul (0.0-0.1); BASOPHILS % 0.5 % (0.0-2.0); EOSINOPHILS # 0.2 10^3/ul (0.0-0.5); EOSINOPHILS % 1.6 % (0.0-7.0); HEMATOCRIT 33.1 % (37.0-47.0); HEMOGLOBIN 10.5 g/dl (12.0-16.0); LYMPHOCYTES # 2.6 10^3/ul (0.8-2.9); LYMPHOCYTES % 26.9 % (15.0-51.0); MEAN CORPUSCULAR HEMOGLOBIN 25.7 pg (29.0-33.0); MEAN CORPUSCULAR HGB CONC 31.7 g/dl (32.0-37.0); MEAN CORPUSCULAR VOLUME 80.9 fl (82.0-101.0); MEAN PLATELET VOLUME 9.7 fl (7.4-10.4); MONOCYTE # 0.8 10^3/ul (0.3-0.9); MONOCYTES % 8.5 % (0.0-11.0); NEUTROPHILS % 61.9 % (39.0-77.0); PLATELET COUNT 359 10^3/UL (140-415); RED BLOOD COUNT 4.09 10^6/ul (4.20-5.40); RED CELL DISTRIBUTION WIDTH 15.9 % (11.5-14.5); WHITE BLOOD COUNT 9.8 10^3/ul (4.8-10.8)
[2017-08-10 06:24] LABS: CALCIUM 8.3 mg/dl (8.4-10.2); CREATININE 0.67 mg/dl (0.44-1.00); POTASSIUM 3.4 mmol/L (3.5-5.1)
[2017-08-10 07:50] VITALS: BP 139/66; RESP 18
[2017-08-10] MEDS: DOCUSATE SODIUM 100 MG CAP PO SCH (09:00)
[2017-08-10] MEDS: POLYETHYLENE GLYCOL 17 GM PACKET PO SCH (09:00)
[2017-08-10] MEDS: SOD CHLORIDE 0.9% 1,000 ML IV SCH ×2 (09:06→17:05)
[2017-08-10] MEDS: FAMOTIDINE 20 MG TAB PO SCH ×2 (09:06→20:05)
[2017-08-10] MEDS ORDERED: POTASSIUM CHLORIDE (SR) 20 MEQ TAB PO STA (09:56)
--- NOTE | 2017-08-10 10:03 | PN ---
Date/Time of Note Date/Time of Note DATE: 08/10/17 TIME: 09:58 Assessment/Plan VTE Prophylaxis VTE Prophylaxis Intervention: ambulation, SCD's Lines/Catheters IV Catheter Type (from Nrs): Peripheral IV Urinary Cath still in place: Yes Reason Cath still needed: other (indicate) Assessment/Plan Chief Complaint/Hosp Course 1 ESBL UTI with Pyelonephritis. Clinically improved -BC so far negative. Continue meropenem (Day 3) 2. Status post Severe sepsis secondary to #1. -F/u final BC 3. Suspected ileus per CT: Small bowel follow-thorough is negative. Patient with regular BM. -No further intervention needed. -Continue diet, bowel regimen of Colace and MiraLAX daily 4. Suspected pulmonary hypertension: Incidental finding on the chest x-ray of prominence of the central pulmonary vasculature. Patient asymptomatic. -F/u echo. 5. Prediabetes.A1C 6.3. With stable glucose. -With obesity/metabolic syndrome, patient will be benefited with Metformin therapy up on discharge -Life style modification with diet/exercise advised. 6. Mild iron deficient anemia. -Start oral replacement. PLAN: overall patient with significant improvement. ESBL sensitive to Bactrim. BC so far negative. will await one more day for final BC and if negative DC plan on 10day Bactrim. Patient was seen in collaboration with DR. [place]. Problems: Subjective 24 Hr Interval Summary Free Text/Dictation Had mild low grade fever early this AM. No other distress. Exam/Review of Systems Vital Signs Vitals Vital Signs Date Time Temp Pulse Resp B/P Pulse Ox O2 Delivery O2 Flow Rate FiO2 08/10/17 07:50 98.3 65 18 139/66 98 08/07/17 23:29 Room Air Intake and Output 08/09/17 08/09/17 08/10/17 15:00 23:00 07:00 Intake Total 800 ml 2150 ml 2185 ml Output Total 1400 ml 2100 ml Balance 800 ml 750 ml 85 ml Exam General: Well developed, female -not in acute distress. HEENT: Normocephalic, Atraumatic, No laceration or hematoma; Eyes: PEERL, Conjunctiva clear, Anicteric sclera Neck: Supple without any lymphadenopathy, nontender, no JVD, no carotid bruits, trachea midline, no thyromegaly Cardiac: S1, S2 auscultated, regular rhythm and rate, no mumurs or gallop Pulmonary: Normal respiratory effort. Chest clear to auscultation bilaterally, no adventitious breath sounds GI: With mild tenderness to right flank area. Soft, non- distended, no masses, no rebound tenderness or guarding. Bowel sounds HYPOactive on all four quadrants Genitourinary: Deferred. Extremities: No cyanosis, clubbing, or edema. Pulses [2+] bilaterally. Full ROM on all four extremities. No focal weakness appreciated. Neurologic: Alert to person, place, time, and situation. Affect appropriate, intact sensation. Skin: Clean,dry, and intact. No ecchymosis, no rashes, or lesions Results Result Diagram: 08/10/17 0500 08/10/17 0500 Results 24 hrs Laboratory Tests Test 08/10/17 05:00 White Blood Count 9.8 # Red Blood Count 4.09 L Hemoglobin 10.5 L Hematocrit 33.1 L Mean Corpuscular Volume 80.9 L Mean Corpuscular Hemoglobin 25.7 L Mean Corpuscular Hemoglobin Concent 31.7 L Red Cell Distribution Width 15.9 H Platelet Count 359 # Mean Platelet Volume 9.7 Neutrophils % 61.9 Lymphocytes % 26.9 Monocytes % 8.5 Eosinophils % 1.6 Basophils % 0.5 Nucleated Red Blood Cells % 0.0 Neutrophils # (Manual) 6.1 Lymphocytes # 2.6 Monocytes # 0.8 Eosinophils # 0.2 Basophils # 0.1 Nucleated Red Blood Cells # 0.0 Sodium Level 142 Potassium Level 3.4 L Chloride Level 114 H Carbon Dioxide Level 24 Anion Gap 7 L Blood Urea Nitrogen 3 L Creatinine 0.67 Glucose Level 110 Calcium Level 8.3 L Medications Medications Current Medications Sodium Chloride (NS) 1,000 ml @ 125 mls/hr Q8H IV Last administered on 09:06; Admin Dose 125 MLS/HR; Start 08/08/17 at 00:38 Ondansetron HCl (Zofran Inj) 4 mg Q6H PRN IV NAUSEA AND/OR VOMITING; Start 09/14 at 01:00 Acetaminophen (Tylenol Tab) 650 mg Q6H PRN PO PAIN LEVEL 1-3 OR FEVER Last administered on 08/10/17 03:05; Admin Dose 650 MG; Start 9/10/17 at 01:00 Docusate Sodium (Colace) 100 mg Q12H PRN PO CONSTIPATION; Start 08/08/17 at 01: 00 Bisacodyl (Dulcolax) 5 mg DAILY PRN PO CONSTIPATION; Start 08/08/17 at 01:00 Famotidine (Pepcid) 20 mg Q12 PO Last administered on 08/10/17 09:06; Admin Dose 20 MG; Start 08/08/17 at 01:00 Docusate Sodium (Colace) 100 mg DAILY PO Last administered on 08/09/17 09:26; Admin Dose 100 MG; Start 08/08/17 at 09:00 Polyethylene Glycol 17 gm 17 gm DAILY PO Last administered on 08/09/17 09:25; Admin Dose 17 GM; Start 08/08/17 at 09:00 Meropenem/Sodium Chloride (Merrem 1 Gm/50 ml (Pmx)) 50 ml @ 100 mls/hr Q8 IVPB Last administered on 08/10/17 05:18; Admin Dose 100 MLS/HR; Start 08/08/17 at 11:30 Morphine Sulfate (morphine) 2 mg Q3H PRN IV pain; Start 08/08/17 at 11:30 Zolpidem Tartrate (Ambien) 5 mg HS PRN PO INSOMNIA Last administered on 02:13; Admin Dose 5 MG; Start 08/09/17 at 02:00 EDOUARD HICKS NP Aug 10, 2017 10:03
[2017-08-10] MEDS: FERROUS SULFATE (EC) 325 MG TAB PO SCH ×2 (11:34→20:05)
[2017-08-10 14:24] VITALS: BP 146/86; RESP 18
--- NOTE | 2017-08-10 17:01 | RADRPT ---
Echocardiogram Report Patient Name: QUINCY CARDENAS Gender: Female Date: 1960 Study Date: 09-Aug-2017 Sandblast Operator: Espinoza [facility] Location: 2248 Ref. Physician: NATHAN MELÉNDEZ Quality: Adequate Procedures: Transthoracic echocardiogram with complete 2D, M-Mode, and doppler examination. Indications: Xray shows prominence of pul. vasc. 2D/M Mode Doppler Measurement Value Normal Ranges Measurement Value Normal Ranges LVIDd 2D 4.4 3.5 - 5.6 cm AV Peak Iván 2.3 m/sec LVIDs 2D 3.0 2.1 - 4.1 cm AV Peak PG 20.0 mmHg FS 2D 32.7 % LVOT Peak Iván 1.3 m/sec LVPWd 2D 1.3 0.6 - 1.1 cm LVOT Peak PG 7.0 mmHg IVSd 2D 1.3 0.6 - 1.1 cm MV E Peak Iván 1.4 m/sec IVS/LVPW 2D 1.0 MV A Peak Iván 1.4 m/sec AoR Diam 2D 3.1 2.0 - 3.7 cm MV E/A 1.1 LA/Ao 2D 1 0 - 1 MV Decel Time 187 msec EDV 2D 85.2 cm3 MV E/A 1.1 ESV 2D 25.9 cm3 MR Peak PG 113.0 mmHg LA Dimen 2D 3.8 2.3 - 4.0 cm MR Peak Iván 5.3 m/sec TR Peak Iván 3.3 m/sec TR Peak PG 43.0 mmHg RVSP 46.0 mmHg Findings Left Ventricle: Normal left ventricular systolic function. Normal left ventricular cavity size. Mild concentric left ventricular hypertrophy. Ejection fraction is visually estimated at 65 %. Abnormal Diastolic Function. Right Ventricle: Normal right ventricular size. Normal right ventricular systolic function. Left Atrium: The left atrium is normal in size. Right Atrium: The right atrium is normal in size. Mitral Valve: Mitral valve leaflets appear mildly thickened. Mild mitral annular calcification. Mild mitral valve regurgitation. Aortic Valve: Normal appearance of the aortic valve. No significant aortic stenosis or insufficiency. Tricuspid Valve: Normal appearance and function of the tricuspid valve with trace physiologic regurgitation. Estimated peak PA systolic pressure 46 mmHg. Pulmonic Valve: Pulmonic valve not well visualized. There is trace pulmonic regurgitation. Pericardium: Normal pericardium with no significant pericardial effusion. Aorta: Normal aortic root. IVC: Normal size and normal respiratory collapse consistent with normal right atrial pressure. Conclusions 1.Normal left ventricular systolic function. Normal left ventricular cavity size. Mild concentric left ventricular hypertrophy. Ejection fraction is visually estimated at 65 %. Abnormal Diastolic Function. 2.Normal right ventricular size. Normal right ventricular systolic function. 3.The left atrium is normal in size. 4.The right atrium is normal in size. 5.Mild mitral valve regurgitation. 6.No significant aortic stenosis or insufficiency. 7.Normal appearance and function of the tricuspid valve with trace physiologic regurgitation. Estimated peak PA systolic pressure 46 mmHg. 8.Normal pericardium with no significant pericardial effusion. Electronically Signed By: Sam Briseno 10-Aug-2017 17:01:22 -0700 Patient Name: QUINCY CARDENAS Study Date: 09-Aug-2017 [id number]
[2017-08-10 20:37] VITALS: BP 122/66; RESP 18
[2017-08-11] MEDS: SOD CHLORIDE 0.9% 1,000 ML IV SCH ×2 (01:57→10:11)
[2017-08-11 03:23] VITALS: BP 131/68; RESP 19
[2017-08-11 04:00] VITALS: BP 129/59; RESP 19
[2017-08-11] MEDS: MEROPENEM 1 GM/50ML(PMX) 50 ML IVPB SCH ×2 (05:06→13:21)
[2017-08-11 06:28] LABS: BASOPHILS % 0.4 % (0.0-2.0); EOSINOPHILS # 0.2 10^3/ul (0.0-0.5); EOSINOPHILS % 1.7 % (0.0-7.0); HEMATOCRIT 36.9 % (37.0-47.0); HEMOGLOBIN 11.4 g/dl (12.0-16.0); LYMPHOCYTES # 2.7 10^3/ul (0.8-2.9); LYMPHOCYTES % 30.2 % (15.0-51.0); MEAN CORPUSCULAR HEMOGLOBIN 24.5 pg (29.0-33.0); MEAN CORPUSCULAR HGB CONC 30.9 g/dl (32.0-37.0); MEAN CORPUSCULAR VOLUME 79.4 fl (82.0-101.0); MEAN PLATELET VOLUME 9.2 fl (7.4-10.4); MONOCYTE # 0.6 10^3/ul (0.3-0.9); MONOCYTES % 7.1 % (0.0-11.0); NEUTROPHILS % 60.3 % (39.0-77.0); PLATELET COUNT 449 10^3/UL (140-415); RED BLOOD COUNT 4.65 10^6/ul (4.20-5.40); RED CELL DISTRIBUTION WIDTH 15.9 % (11.5-14.5)
[2017-08-11 07:01] LABS: CALCIUM 8.9 mg/dl (8.4-10.2); CREATININE 0.68 mg/dl (0.44-1.00); POTASSIUM 3.7 mmol/L (3.5-5.1)
[2017-08-11 08:00] VITALS: BP 128/64; RESP 18
[2017-08-11] MEDS: DOCUSATE SODIUM 100 MG CAP PO SCH (08:55)
[2017-08-11] MEDS: FERROUS SULFATE (EC) 325 MG TAB PO SCH (08:55)
[2017-08-11] MEDS: POLYETHYLENE GLYCOL 17 GM PACKET PO SCH (08:55)
[2017-08-11] MEDS: FAMOTIDINE 20 MG TAB PO SCH (08:55)
--- NOTE | 2017-08-11 13:04 | PDOCDIS ---
Discharge Instructions CONDITION Patient Condition: Stable HOME CARE INSTRUCTIONS: Diet Instructions: Reduced Calorie FOLLOW UP/APPOINTMENTS Follow-up Plan 1.Follow up with primary care physician in 1 week If you don't have one please let someone know, we can give you resources that may help you pick one. You may also call your insurance company to assign one to you. Review your medication list with your nurse before leaving and if you need new prescriptions please let your nurse know. I may have made changes to your home medications or given you new prescriptions, please let your primary doctor know as well. Stay compliant with your medications and report any side effects to your PCP or pharmacist. Return to the ER if you have any concerns and cannot reach your doctors or call your insurance company, they usually have a nurse that can help you. 2. Call 911 or go to the nearest emergency room if experiencing loss of consciousness, dizziness, chest pain, shortness of breath, vomiting/abdominal pain, speech difficulties, motor weakness or any unusual symptoms. EDOUARD HICKS NP Aug 11, 2017 13:04
[2017-08-11] MEDS ORDERED: FER325 PO (13:07)
[2017-08-11] MEDS ORDERED: SULF1TAB31 PO (13:07)
[2017-08-11 14:00] VITALS: BP 132/64; RESP 20
--- NOTE | 2017-08-11 15:19 | DS ---
Date/Time of Note Date/Time of Note DATE: 08/11/17 TIME: 15:16 Discharge Summary Admission/Discharge Info Admit Date/Time Aug 07, 2017 at 22:49 Discharge Date/Time Discharge Diagnosis 1 ESBL UTI with Pyelonephritis. Clinically improved 2. Severe sepsis ESBL UTI. Resolved 3. Prediabetes.A1C 6.3 4. Mild iron deficient anemia. 5. Obesity. Patient Condition: Stable Procedures 09/06/2017. CT abdomen and pelvis. Mild renal cortical scarring with minimal perinephric stranding. 08/08/2017. Small bowel follow-through. Negative for obstruction or ileus. Hospital Course This is a 57-year-old female with no significant past medical history, who was admitted for 3 day duration of bilateral flank pain with associated dysuria. Patient did not have any hematuria upon presentation. She was noted with a fever with positive urinalysis. The abdomen and pelvis was positive for pyelonephritis. Patient was admitted for further evaluation. Patient was in sepsis and was treated with IV fluids, and IV broad-spectrum. Her initial CT scan was suspected of ileus. However, patient did not have any symptoms of ileus. A small bowel follow-through did not reveal any obstruction or ileus. Patient had regular bowel movement. She did not need any intervention. Patient had positive urine culture with ESBL. Blood culture negative. Her condition responded well to IV meropenem. There was no further fevers. For dysuria, she was treated with short-term by radium with improvement in symptoms. She was able to tolerate diet and activities well. Sepsis resolved. At this time, there is no further inpatient workup indicated. Urine culture had sensitivity to oral Bactrim. Patient is medically stable for discharge with 10 more days of oral Bactrim. During the course of hospitalization, patient was noted with mild iron deficiency with stable H&H. She was recommended to take oral iron supplements. Also noted with prediabetes with hemoglobin A1c 6.3. Her blood sugar remained stable. Patient was recommended to take metformin as she is also obese. However, patient opted for repeating A1c with therapeutic lifestyle changes and will follow up with her primary care physician regarding treatment. Disposition: Patient will be discharged home today. She was instructed to follow-up with her primary care physician in 1 week. Patient verbalized discharge instructions. Approximately 60 minutes was spent in coordinating the discharge on this patient. Patient was seen in collaboration with [facility] Sulfamethoxazole/Trimethoprim* (Bactrim Ds* Tablet) 1 Each Tablet, 1 TAB PO BID for 10 Days, #20 TAB TAKE WITH 1 FULL GLASS OF WATER AND FOOD Prov:EDOUARD HICKS [employer]. [employer] 08/11/17 Ferrous Sulfate* (Ferrous Sulfate*) 325 Mg Tabec, 325 MG PO BID, #60 TAB Prov:EDOUARD HCIKS [employer]. [employer] 08/11/17 Docusate Sodium* (Colace*) 100 Mg Capsule, 100 MG PO TID Y for CONSTIPATION, # 30 CAP Prov:PERLA SALGADO MD 08/07/17 Discontinued Scripts Cephalexin* (Keflex*) 500 Mg Capsule, 500 MG PO BID for 14 Days, CAP Prov:PERLA SALGADO MD 08/07/17 Ibuprofen* (Motrin*) 800 Mg Tab, 800 MG PO Q6H Y for PAIN AND OR ELEVATED TEMP, #30 TAB Prov:PERLA SALGADO MD 08/07/17 Ondansetron (Ondansetron Odt) 4 Mg Tab.rapdis, 4 MG PO Q6H Y for NAUSEA AND/OR VOMITING, #10 TAB Prov:PERLA SALGADO MD 07/11/17 Hydrocodone/Acetaminophen ([place] 5-325 Tablet) 1 Each Tablet, 1 TAB PO Q6H Y for PAIN, #7 TAB Prov:PERLA SALGADO MD 07/11/17 Ibuprofen* (Motrin*) 800 Mg Tab, 800 MG PO Q6H Y for PAIN AND OR ELEVATED TEMP, #30 TAB Prov:PERLA SALGADO MD 07/11/17 Cephalexin* (Keflex*) 500 Mg Capsule, 500 MG PO BID for 14 Days, CAP Prov:PERLA SALGADO MD 07/11/17 Methylprednisolone* (Medrol* DOSE PACK) 4 Mg/Dose-Pack Tab.ds.pk, 4 MG PO . DIRECTED for 6 Days, PACKET Prov:ZAINAB,KELBY C 02/11/17 Orphenadrine Citrate (Norflex) 100 Mg Tablet.sa, 100 MG PO BID for 3 Days, TAB.SA Prov:ZAINAB,KELBY C 02/11/17 Naproxen* (Naprosyn*) 500 Mg Tablet, 500 MG PO BID Y for PAIN AND/OR INFLAMMATION, #30 TAB Prov:KELBY LAMB 02/11/17 Hydrocodone/Acetaminophen ([place] 5-325 Tablet) 1 Each Tablet, 1 TAB PO Q6H Y for PAIN, #15 TAB Prov:KELBY LAMB 02/11/17 Oxycodone Hcl-Acetaminophen* (Percocet*) 5-325 Mg Tablet, 1 TAB PO TID Y for PAIN LEVEL 6-10, #12 TAB Prov:ERIC CASTLE MD 02/27/16 Ibuprofen* (Ibuprofen*) 600 Mg Tablet, 600 MG PO TID for PAIN, #30 TAB Prov:ERIC CASTLE MD 02/27/16 Cephalexin* (Cephalexin*) 500 Mg Capsule, 500 MG PO TID, #21 CAP Prov:ERIC CASTLE MD 02/27/16 Follow-up Plan 1.Follow up with primary care physician in 1 week If you don't have one please let someone know, we can give you resources that may help you pick one. You may also call your insurance company to assign one to you. Review your medication list with your nurse before leaving and if you need new prescriptions please let your nurse know. I may have made changes to your home medications or given you new prescriptions, please let your primary doctor know as well. Stay compliant with your medications and report any side effects to your PCP or pharmacist. Return to the ER if you have any concerns and cannot reach your doctors or call your insurance company, they usually have a nurse that can help you. 2. Call 911 or go to the nearest emergency room if experiencing loss of consciousness, dizziness, chest pain, shortness of breath, vomiting/abdominal pain, speech difficulties, motor weakness or any unusual symptoms. Primary Care Provider [facility] Pending Labs Laboratory Tests Test 08/11/17 05:28 White Blood Count 9.010^3/ul (4.8-10.8) Red Blood Count 4.6510^6/ul (4.20-5.40) Hemoglobin 11.4g/dl (12.0-16.0) Hematocrit 36.9% (37.0-47.0) Mean Corpuscular Volume 79.4fl (82.0-101.0) Mean Corpuscular Hemoglobin 24.5pg (29.0-33.0) Mean Corpuscular Hemoglobin Concent 30.9g/dl (32.0-37.0) Red Cell Distribution Width 15.9% (11.5-14.5) Platelet Count 33401^3/UL (140-415) Mean Platelet Volume 9.2fl (7.4-10.4) Neutrophils % 60.3% (39.0-77.0) Lymphocytes % 30.2% (15.0-51.0) Monocytes % 7.1% (0.0-11.0) Eosinophils % 1.7% (0.0-7.0) Basophils % 0.4% (0.0-2.0) Nucleated Red Blood Cells % 0.0/100WBC (0.0-0.0) Neutrophils # (Manual) 5.410^3/ul (1.7-7.5) Lymphocytes # 2.710^3/ul (0.8-2.9) Monocytes # 0.610^3/ul (0.3-0.9) Eosinophils # 0.210^3/ul (0.0-0.5) Basophils # 0.010^3/ul (0.0-0.1) Nucleated Red Blood Cells # 0.010^3/ul (0.0-0.0) Sodium Level 143mmol/L (135-144) Potassium Level 3.7mmol/L (3.5-5.1) Chloride Level 109mmol/L (97-110) Carbon Dioxide Level 26mmol/L (21-31) Anion Gap 12 (8-16) Blood Urea Nitrogen 3mg/dl (7-20) Creatinine 0.68mg/dl (0.44-1.00) Glucose Level 114mg/dl (70-220) Calcium Level 8.9mg/dl (8.4-10.2) Magnesium Level 1.8mg/dl (1.7-2.5) EDOUARD HICKS NP Aug 11, 2017 15:19
== END 2017-08-11 15:18 | disposition home or self-care (01) | DRG 872 ==
LOC: E/R 18:34 → PP2 22:49
PROVIDERS: ADMIT Family Medicine; ATTEND Family Medicine
DX: A41.51 Sepsis due to Escherichia coli [E. coli] (principal); I27.2 Other secondary pulmonary hypertension; N12 Tubulo-interstitial nephritis, not specified as acute or chronic; K56.7 Ileus, unspecified; R65.20 Severe sepsis without septic shock; E78.5 Hyperlipidemia, unspecified; R73.03 Prediabetes; D50.9 Iron deficiency anemia, unspecified; Z87.442 Personal history of urinary calculi
CPT/HCPCS: 36415; 71010; 74176; 74250; 80048; 80053; 80061; 81001; 83036; 83540; 83605; 83690; 83735; 84439; 84443; 84480; 85025; 87040; 87086; 93306; 96374; 96375; J1885; J2185; J2270; J2405; J2543; J7030; J7040